=== PATIENT | female | born 1930 | race Caucasian/White ===

== ENCOUNTER → 2016-07-17 | Outpatient (CLI) | payer MEDICARE ==
[~2016-07-17] MED LIST: ACET325T14 PO; AMIO200T42 PO; AMLO10TA2 PO; ATOR20TA9 PO; BISA10SU54 PR; DIGO250T PO; FURO-93 PO; HYDR-3307 PO; LISI5TAB7 PO; MAGN400O4 PO; METO25TA35 PO; SENN-1 PO; SERT25TA3 PO; VIT1TABL32 PO; WARF2.5T73 PO; [UNRECOGNIZED DRUG - CODE] SQ; potassium chloride PO
== END | disposition home or self-care (01) ==
LOC: RAD 09:50
PROVIDERS: ATTEND Physician Assistant
DX: I63.9 Cerebral infarction, unspecified (principal); G31.9 Degenerative disease of nervous system, unspecified; R90.82 White matter disease, unspecified
CPT/HCPCS: 70551

== ENCOUNTER → 2016-08-09 | Outpatient (CLI) | payer MEDICARE | END | disposition home or self-care (01) | LOC: CFH 11:15 | PROVIDERS: ATTEND Physician Assistant | DX: S22.088A Other fracture of T11-T12 vertebra, initial encounter for closed fracture (principal); M85.88 Other specified disorders of bone density and structure, other site; M25.552 Pain in left hip; M47.896 Other spondylosis, lumbar region; I63.9 Cerebral infarction, unspecified; I48.91 Unspecified atrial fibrillation; I10 Essential (primary) hypertension; E78.5 Hyperlipidemia, unspecified; F32.9 Major depressive disorder, single episode, unspecified; R25.1 Tremor, unspecified; R35.0 Frequency of micturition; R79.9 Abnormal finding of blood chemistry, unspecified; E03.9 Hypothyroidism, unspecified; R73.01 Impaired fasting glucose; Z85.42 Personal history of malignant neoplasm of other parts of uterus; Z95.5 Presence of coronary angioplasty implant and graft; X58.XXXA Exposure to other specified factors, initial encounter; Y93.89 Activity, other specified; Y92.89 Other specified places as the place of occurrence of the external cause; Y99.8 Other external cause status | CPT/HCPCS: 72072; 72110 ==

== ENCOUNTER 2016-09-11 10:29 | Inpatient (IN) | payer MEDICARE ==
[~2016-09-11] VITALS: Ht 160 cm; Wt 51.1 kg
[2016-09-11] MEDS ORDERED: SERT25TA3 PO (10:45)
[2016-09-11] MEDS ORDERED: AMLO10TA2 PO (10:45)
[2016-09-11] MEDS ORDERED: LISI-170 PO (10:45)
[2016-09-11] MEDS ORDERED: ONDANSETRON 2MG/ML, 2ML IVPush ONE ×2 (11:30→13:30)
[2016-09-11] MEDS ORDERED: ONDANSETRON 2MG/ML, 2ML ONE (11:55)
[2016-09-11] MEDS ORDERED: SODIUM CHLORIDE 0.9% 1,000ML IVBOLUS ONE (12:00)
[2016-09-11] MEDS ORDERED: SODIUM CHLORIDE FLUSH 10ML SYR IVF ONE (12:00)
[2016-09-11 12:04] LABS: BLOOD UREA NITROGEN 11 mg/dL (7-18)
[2016-09-11 12:09] LABS: ASPARTATE AMINO TRANSFERASE 21 U/L (15-37)
[2016-09-11] MEDS ORDERED: OMNIPAQUE 350 MG/ML, 100ML BOTTLE ONE (13:00)
[2016-09-11] MEDS ORDERED: MORPHINE SULFATE 4 MG/ML, 1ML IVPush ONE (13:30)
[2016-09-11] MEDS ORDERED: METOCLOPRAMIDE 5 MG/ML, 2ML ONE (14:24)
[2016-09-11] MEDS ORDERED: MORPHINE SULFATE 4 MG/ML, 1ML ONE (14:24)
[2016-09-11] MEDS ORDERED: METOCLOPRAMIDE 5 MG/ML, 2ML IVPush ONE (14:30)
[2016-09-11] MEDS ORDERED: SODIUM CHLORIDE 0.9% 1,000 ML IV SCH (15:49)
[2016-09-11] MEDS ORDERED: ONDANSETRON ODT 4 MG PO PRN (16:00)
[2016-09-11] MEDS ORDERED: GUAIFENESIN/DM 200-20MG, 10ML UDC PO PRN (16:00)
[2016-09-11] MEDS ORDERED: MORPHINE SULFATE 4 MG/ML, 1ML IVPush PRN (16:00)
[2016-09-11] MEDS: ENOXAPARIN 40 MG/0.4 ML SQ SCH ×2 (16:00→18:06)
[2016-09-11] MEDS ORDERED: LABETALOL 5MG/ML, 20ML IVPush PRN (16:00)
[2016-09-11 17:00] VITALS: BP 151/93
[2016-09-11] MEDS ORDERED: AMIODARONE IV SCH (18:00)
[2016-09-11] MEDS ORDERED: FILTER 0.22 MICRON FOR AMIODARONE IV PRN (18:00)
[2016-09-11] MEDS ORDERED: DEXTROSE 5% IV SCH (18:00)
[2016-09-11 20:00] VITALS: BP 144/70
[2016-09-11] MEDS: AMIODARONE 200 MG TABLET PO SCH (20:10)
[2016-09-11] MEDS: LISINOPRIL 20 MG TABLET PO SCH (20:10)
[2016-09-11] MEDS: D5%-0.9% NACL 1,000 ML IV SCH (20:14)
[2016-09-12 00:02] VITALS: BP 118/70
[2016-09-12 04:00] VITALS: BP 137/70
[2016-09-12] MEDS: D5%-0.9% NACL 1,000 ML IV SCH ×2 (04:27→14:34)
[2016-09-12 06:16] LABS: ASPARTATE AMINO TRANSFERASE 11 U/L (15-37); BLOOD UREA NITROGEN 9 mg/dL (7-18)
[2016-09-12] MEDS ORDERED: MAGNESIUM SULFATE PMX 2GM/50ML 50 ML IV ONE (08:00)
[2016-09-12 08:16] VITALS: BP 148/74
[2016-09-12] MEDS: AMIODARONE 200 MG TABLET PO SCH ×3 (08:19→11:18)
[2016-09-12] MEDS: LISINOPRIL 20 MG TABLET PO SCH ×2 (08:20→21:24)
[2016-09-12] MEDS: SERTRALINE 50MG TABLET PO SCH (08:20)
[2016-09-12] MEDS ORDERED: ATORVASTATIN 40 MG TABLET PO SCH (09:00)
[2016-09-12] MEDS ORDERED: MULTIVITAMINS/MINERALS TABLET PO SCH (09:00)
[2016-09-12] MEDS ORDERED: AMLODIPINE 5 MG TABLET PO SCH (09:00)
[2016-09-12] MEDS ORDERED: ONDANSETRON 2MG/ML, 2ML IVPush PRN (11:00)
[2016-09-12] MEDS: ENOXAPARIN 40 MG/0.4 ML SQ SCH (11:12)
[2016-09-12] MEDS: METOCLOPRAMIDE 5 MG/ML, 2ML IVPush SCH ×2 (11:12→21:24)
[2016-09-12 11:20] VITALS: BP 129/78
[2016-09-12 14:10] VITALS: BP 142/68
[2016-09-12 18:54] VITALS: BP 139/67
[2016-09-13 02:08] VITALS: BP 125/68
[2016-09-13] MEDS: METOCLOPRAMIDE 5 MG/ML, 2ML IVPush SCH ×3 (02:23→16:27)
[2016-09-13] MEDS: D5%-0.9% NACL 1,000 ML IV SCH ×2 (04:00→17:00)
[2016-09-13 05:20] LABS: BLOOD UREA NITROGEN 5 mg/dL (7-18)
[2016-09-13 07:00] VITALS: BP 129/62
[2016-09-13] MEDS ORDERED: POTASSIUM CHLORIDE 40 MEQ in SODIUM CHLORIDE 0.9% 500 ML IV ONE (07:30)
[2016-09-13] MEDS ORDERED: AMLODIPINE 5 MG TABLET PO SCH (09:00)
[2016-09-13] MEDS ORDERED: AMIODARONE 200 MG TABLET PO SCH (09:00)
[2016-09-13] MEDS: LISINOPRIL 20 MG TABLET PO SCH (09:05)
[2016-09-13] MEDS: SERTRALINE 50MG TABLET PO SCH (09:05)
[2016-09-13] MEDS: ENOXAPARIN 40 MG/0.4 ML SQ SCH (12:59)
[2016-09-13 13:30] VITALS: BP 106/55
[2016-09-13] MEDS ORDERED: BISA10SU54 PR (15:46)
[2016-09-13] MEDS ORDERED: BISACODYL 10 MG SUPP PR SCH (16:00)
[2016-09-13] MEDS ORDERED: POTASSIUM CHLORIDE 20 MEQ TAB.ER.PRT PO ONE (16:00)
[2016-09-13] MEDS ORDERED: POTASSIUM ACID PHOSPHATE 500 MG TABLET.SOL PO SCH (16:00)
== END 2016-09-13 17:52 | disposition home or self-care (01) | DRG 388 ==
LOC: ED 11:27 → EDIP 14:32 → 3NE 16:13
PROVIDERS: ADMIT Internal Medicine; ATTEND Internal Medicine
DX: K56.60 Unspecified intestinal obstruction (principal); E43 Unspecified severe protein-calorie malnutrition; M48.54XA Collapsed vertebra, not elsewhere classified, thoracic region, initial encounter for fracture; D68.69 Other thrombophilia; D63.8 Anemia in other chronic diseases classified elsewhere; E78.5 Hyperlipidemia, unspecified; E83.39 Other disorders of phosphorus metabolism; E83.42 Hypomagnesemia; E87.6 Hypokalemia; H35.30 Unspecified macular degeneration; I10 Essential (primary) hypertension; I48.2 Chronic atrial fibrillation; R16.0 Hepatomegaly, not elsewhere classified; I25.10 Atherosclerotic heart disease of native coronary artery without angina pectoris; I34.0 Nonrheumatic mitral (valve) insufficiency; Z79.01 Long term (current) use of anticoagulants; Z86.73 Personal history of transient ischemic attack (TIA), and cerebral infarction without residual deficits; Z95.5 Presence of coronary angioplasty implant and graft; Z90.710 Acquired absence of both cervix and uterus; Z88.6 Allergy status to analgesic agent; Z68.20 Body mass index [BMI] 20.0-20.9, adult
CPT/HCPCS: 36415; 74022; 74177; 80048; 80053; 81003; 83690; 83735; 84100; 84439; 84443; 85025; 85610; 85730; 93005; 96361; 96374; 96375; J1650; J2405; J3480; J7042; Q9967; J2765; J3475; J7030; J7040

== ENCOUNTER 2017-05-28 07:20 | Day surgery (SDC) | payer MEDICARE ==
[~2017-05-28] VITALS: Ht 160 cm; Wt 50.9 kg
[~2017-05-28 07:20] MED LIST changes: +LISI-170 PO; -MAGN400O4 PO; +MAGN400O7 PO
[2017-05-28 07:35] VITALS: BP 136/81
[2017-05-28] MEDS ORDERED: PROP20TA PO (07:48)
[2017-05-28] MEDS ORDERED: AMIO200T42 PO (07:48)
[2017-05-28] MEDS ORDERED: RIVA15TA PO (07:51)
[2017-05-28] MEDS ORDERED: AMIO100T4 PO (09:12)
[2017-05-28] MEDS ORDERED: HYDROcodone/APAP 5/325 TABLET PO ONE (12:00)
[2017-05-28] MEDS ORDERED: GLYCOPYRROLATE 0.2MG/1ML, 5ML ONE (16:28)
[2017-05-28] MEDS ORDERED: PROPOFOL 10 MG/ML, 20ML ONE (16:28)
== END 2017-05-28 11:45 ==
LOC: CACL 07:20
PROVIDERS: ATTEND Internal Medicine Cardiovascular Disease
DX: I48.91 Unspecified atrial fibrillation (principal); I10 Essential (primary) hypertension; E78.00 Pure hypercholesterolemia, unspecified; E87.6 Hypokalemia; F10.10 Alcohol abuse, uncomplicated; Z87.891 Personal history of nicotine dependence; Z88.3 Allergy status to other anti-infective agents
CPT/HCPCS: 92960; J2704; J3490

== ENCOUNTER 2017-07-26 13:59 | Emergency (ER) | payer MEDICARE ==
[~2017-07-26] VITALS: Ht 160 cm; Wt 50.7 kg
[~2017-07-26 13:59] MED LIST changes: +AMIO100T4 PO; +DOCU-131 PO; +PHOS250T3 PO; +PROP20TA PO; +RIVA15TA PO; +SULF1TAB24 PO
[2017-07-26 14:00] VITALS: BP 142/74
[2017-07-26] MEDS ORDERED: DIPH,PERTUSS(ACELL),TET VAC/PF 0.5 ML IM-VACC ONE ×2 (14:30→15:26)
== END 2017-07-26 16:47 | disposition home or self-care (01) ==
LOC: ED 16:35
DX: S00.03XA Contusion of scalp, initial encounter (principal); I25.10 Atherosclerotic heart disease of native coronary artery without angina pectoris; I10 Essential (primary) hypertension; I48.91 Unspecified atrial fibrillation; Z86.73 Personal history of transient ischemic attack (TIA), and cerebral infarction without residual deficits; Z87.891 Personal history of nicotine dependence; W01.0XXA Fall on same level from slipping, tripping and stumbling without subsequent striking against object, initial encounter; Y93.89 Activity, other specified; Y92.009 Unspecified place in unspecified non-institutional (private) residence as the place of occurrence of the external cause; Y99.8 Other external cause status
CPT/HCPCS: 70450; 99284

== ENCOUNTER 2017-09-09 10:41 | Inpatient (IN) | payer MEDICARE ==
[~2017-09-09] VITALS: Ht 160 cm; Wt 53.2 kg
[2017-09-09] MEDS ORDERED: AMIO100T4 PO (11:01)
[2017-09-09] MEDS ORDERED: MECLIZINE CHEWABLE 25 MG TAB ONE (11:40)
[2017-09-09] MEDS ORDERED: SODIUM CHLORIDE 0.9% 1,000ML IVBOLUS ONE (12:00)
[2017-09-09] MEDS ORDERED: SODIUM CHLORIDE FLUSH 10ML SYR IVF ONE (12:00)
[2017-09-09] MEDS ORDERED: MECLIZINE CHEWABLE 25 MG TAB PO ONE (12:00)
[2017-09-09 12:11] LABS: BASOPHILS # (AUTO) 0.02 x10^3/uL (0-0.1); BASOPHILS % (AUTO) 0 % (0-1); EOSINOPHILS # (AUTO) 0.07 x10^3/uL (0-0.4); EOSINOPHILS % (AUTO) 1 % (1-7); LYMPHOCYTES # (AUTO) 0.84 x10^3/uL (1-3.4); LYMPHOCYTES % (AUTO) 15 % (22-44); MD NO; MEAN CORPUSCULAR HEMOGLOBIN 32.3 pg (27.0-34.8); MEAN CORPUSCULAR HGB CONC 33.5 g/dL (32.4-35.8); MEAN CORPUSCULAR VOLUME 96.4 fL (80-100); MEAN PLATELET VOLUME 8.6 fL (7.4-10.4); MONOCYTES # (AUTO) 0.73 x10^3/uL (0.2-0.8); MONOCYTES % (AUTO) 13 % (2-9); NEUTROPHILS % (AUTO) 71 % (42-75); PLATELET COUNT 120 x10^3/uL (130-400); RED BLOOD COUNT 4.24 x10^6/uL (3.82-5.3); RED CELL DISTRIBUTION WIDTH 13.8 % (9.6-15.2)
[2017-09-09 12:21] LABS: ALBUMIN 3.4 g/dL (3.4-5.0); ANION GAP 8 mmol/L (5-15); CALCIUM 9.3 mg/dL (8.5-10.1); CHLORIDE 105 mmol/L (98-107); CREATININE 0.67 mg/dL (0.55-1.02)
[2017-09-09 12:24] LABS: CULTURE INDICATED? NO; MICROSCOPIC NOT IND
[2017-09-09 12:24] LABS: TROPONIN I < 0.015 ng/mL (0.000-0.045)
[2017-09-09] MEDS ORDERED: POTASSIUM CHLORIDE 10% 40 MEQ/30 ML UDC PO ONE (13:00)
[2017-09-09] MEDS: POTASSIUM CHLORIDE 20 MEQ TAB.ER.PRT PO SCH ×2 (15:00→18:18)
[2017-09-09 15:09] LABS: FREE T4 (FREE THYROXINE) 1.24 ng/dL (0.76-1.46); THYROID STIMULATING HORMONE 2.65 mIU/L (0.358-3.740)
[2017-09-09 15:50] VITALS: BP 165/85
[2017-09-09] MEDS: SODIUM CHLORIDE 0.9% 1,000 ML IV SCH ×2 (16:47→18:17)
[2017-09-09] MEDS ORDERED: CEFAZOLIN PMX 1GM/50ML 50 ML IVPB ONE (17:00)
[2017-09-09 18:09] LABS: TROPONIN I < 0.015 ng/mL (0.000-0.045)
[2017-09-09 20:00] VITALS: BP 134/83
[2017-09-09 20:01] VITALS: BP 147/89
[2017-09-09 20:02] VITALS: BP 127/75
[2017-09-09] MEDS ORDERED: RIVAROXABAN 15 MG TABLET PO SCH (21:00)
[2017-09-09] MEDS ORDERED: MAGNESIUM SULFATE PMX 4GM/100M 100 ML IV ONE (21:30)
[2017-09-09] MEDS: LISINOPRIL 20 MG TABLET PO SCH (21:51)
[2017-09-09] MEDS: ATORVASTATIN 40 MG TABLET PO SCH (21:51)
[2017-09-10] MEDS: SODIUM CHLORIDE 0.9% 1,000 ML IV SCH ×4 (00:47→14:41)
[2017-09-10 00:49] LABS: TROPONIN I < 0.015 ng/mL (0.000-0.045)
[2017-09-10 02:00] VITALS: BP 125/62
[2017-09-10 05:10] LABS: BASOPHILS # (AUTO) 0.02 x10^3/uL (0-0.1); BASOPHILS % (AUTO) 0 % (0-1); EOSINOPHILS # (AUTO) 0.09 x10^3/uL (0-0.4); EOSINOPHILS % (AUTO) 2 % (1-7); LYMPHOCYTES # (AUTO) 0.89 x10^3/uL (1-3.4); LYMPHOCYTES % (AUTO) 17 % (22-44); MD NO; MEAN CORPUSCULAR HEMOGLOBIN 32.6 pg (27.0-34.8); MEAN CORPUSCULAR HGB CONC 33.9 g/dL (32.4-35.8); MEAN CORPUSCULAR VOLUME 96.2 fL (80-100); MEAN PLATELET VOLUME 8.9 fL (7.4-10.4); MONOCYTES # (AUTO) 0.94 x10^3/uL (0.2-0.8); MONOCYTES % (AUTO) 18 % (2-9); NEUTROPHILS # (AUTO) 3.21 x10^3/uL (1.8-6.8); NEUTROPHILS % (AUTO) 63 % (42-75); PLATELET COUNT 118 x10^3/uL (130-400); RED BLOOD COUNT 3.74 x10^6/uL (3.82-5.3); RED CELL DISTRIBUTION WIDTH 14.1 % (9.6-15.2)
[2017-09-10 05:19] LABS: ALANINE AMINOTRANSFERASE 21 U/L (12-78); ALBUMIN 2.9 g/dL (3.4-5.0); ANION GAP 7 mmol/L (5-15); CHLORIDE 110 mmol/L (98-107)
[2017-09-10 05:22] LABS: ALKALINE PHOSPHATASE 47 U/L (45-117); BILIRUBIN,TOTAL 0.5 mg/dL (0.2-1.0); CHOL/HDL RATIO 1.8; CHOLESTEROL, TOTAL 113 mg/dL (140-239); HDL CHOL % 57 % (28-40); HDL CHOLESTEROL (DIRECT) 64 mg/dL (40-60); LDL CHOLESTEROL,CALCULATED 36 mg/dL (54-169); LDL/HDL RATIO 0.6 (0.5-3.0); TOTAL PROTEIN 5.7 g/dL (6.4-8.2); TRIGLYCERIDES 67 mg/dL (50-200); VLDL CHOLESTEROL 13 mg/dL (0-25)
[2017-09-10] MEDS ORDERED: FENTANYL PF 100 MCG/2ML ONE (07:41)
[2017-09-10] MEDS ORDERED: CEFAZOLIN 1,000 MG ONE (07:41)
[2017-09-10] MEDS ORDERED: MIDAZOLAM 1 MG/ML, 5ML ONE (07:41)
[2017-09-10] MEDS ORDERED: LIDOCAINE/PF 1%, 30ML ONE (07:41)
[2017-09-10] MEDS ORDERED: CEFAZOLIN PMX 1GM/50ML 50 ML ONE (07:41)
[2017-09-10] MEDS: SPIRONOLACTONE 25 MG TABLET PO SCH (07:42)
[2017-09-10] MEDS: AMLODIPINE 5 MG TABLET PO SCH (07:42)
[2017-09-10] MEDS: LISINOPRIL 20 MG TABLET PO SCH ×3 (07:42→19:59)
[2017-09-10 07:54] VITALS: BP 145/73
[2017-09-10] MEDS ORDERED: ATORVASTATIN 40 MG TABLET PO SCH (09:00)
[2017-09-10] MEDS ORDERED: SERTRALINE 100MG TABLET ONE (12:37)
[2017-09-10] MEDS: SERTRALINE 50MG TABLET PO SCH (12:45)
[2017-09-10] MEDS: POTASSIUM CHLORIDE 20 MEQ TAB.ER.PRT PO SCH ×2 (12:45→16:39)
[2017-09-10 13:28] VITALS: BP 158/83
[2017-09-10] MEDS: AMIODARONE 200 MG TABLET PO SCH (15:02)
[2017-09-10] MEDS: PROPRANOLOL 60 MG CAP.SA.24H PO SCH (15:02)
[2017-09-10] MEDS: CEFAZOLIN PMX 1GM/50ML 50 ML IVPB SCH (16:25)
[2017-09-10] MEDS: SODIUM CHLORIDE FLUSH 10ML SYR IVF SCH ×2 (16:25→20:00)
[2017-09-10] MEDS: ACETAMINOPHEN 325 MG TABLET PO PRN (16:39)
[2017-09-10 19:06] VITALS: BP 146/80
[2017-09-10] MEDS: ATORVASTATIN 40 MG TABLET PO SCH (19:59)
[2017-09-11] MEDS: CEFAZOLIN PMX 1GM/50ML 50 ML IVPB SCH (00:24)
[2017-09-11] MEDS: SODIUM CHLORIDE 0.9% 1,000 ML IV SCH ×3 (00:31→15:56)
[2017-09-11 00:49] VITALS: BP 188/84
[2017-09-11 01:54] VITALS: BP 178/98
[2017-09-11] MEDS: ACETAMINOPHEN 325 MG TABLET PO PRN ×2 (05:57→21:33)
[2017-09-11 06:45] VITALS: BP 156/88
[2017-09-11] MEDS: PROPRANOLOL 60 MG CAP.SA.24H PO SCH (08:30)
[2017-09-11] MEDS: SERTRALINE 50MG TABLET PO SCH (08:30)
[2017-09-11] MEDS: LISINOPRIL 20 MG TABLET PO SCH ×2 (08:31→21:34)
[2017-09-11] MEDS: SPIRONOLACTONE 25 MG TABLET PO SCH (08:31)
[2017-09-11] MEDS: AMIODARONE 200 MG TABLET PO SCH (08:31)
[2017-09-11] MEDS: AMLODIPINE 5 MG TABLET PO SCH ×2 (08:31→21:34)
[2017-09-11] MEDS ORDERED: AMIODARONE HCL 100 MG PO SCH (09:00)
[2017-09-11] MEDS ORDERED: ONDANSETRON ODT 4 MG PO PRN (10:30)
[2017-09-11] MEDS ORDERED: ONDANSETRON 2MG/ML, 2ML IVPush PRN (11:00)
[2017-09-11 15:35] VITALS: BP_SYST 103; BP_SYST 144; BP_SYST 151; BP_DIAS 67; BP_DIAS 80; BP_DIAS 81
[2017-09-11] MEDS ORDERED: MECLIZINE 12.5 MG TABLET PO PRN (16:00)
[2017-09-11] MEDS ORDERED: RIVAROXABAN 15 MG TABLET PO SCH (17:00)
[2017-09-11] MEDS: SODIUM CHLORIDE FLUSH 10ML SYR IVF SCH ×2 (18:07→21:35)
[2017-09-11 19:22] VITALS: BP 121/69
[2017-09-11] MEDS: ATORVASTATIN 40 MG TABLET PO SCH (21:34)
[2017-09-12 00:25] VITALS: BP 163/79
[2017-09-12 05:16] LABS: MEAN CORPUSCULAR HEMOGLOBIN 31.7 pg (27.0-34.8); MEAN CORPUSCULAR HGB CONC 32.9 g/dL (32.4-35.8); MEAN CORPUSCULAR VOLUME 96.2 fL (80-100); RED BLOOD COUNT 3.85 x10^6/uL (3.82-5.3); RED CELL DISTRIBUTION WIDTH 13.9 % (9.6-15.2)
[2017-09-12 05:17] LABS: ANION GAP 4 mmol/L (5-15); CALCIUM 8.8 mg/dL (8.5-10.1); CHLORIDE 114 mmol/L (98-107); CREATININE 0.63 mg/dL (0.55-1.02)
[2017-09-12] MEDS: SODIUM CHLORIDE 0.9% 1,000 ML IV SCH (05:49)
[2017-09-12 06:03] LABS: MEAN PLATELET VOLUME 8.8 fL (7.4-10.4); PLATELET COUNT 84 x10^3/uL (130-400)
[2017-09-12 06:06] LABS: BASOPHILS # (AUTO) 0.01 x10^3/uL (0-0.1); BASOPHILS % (AUTO) 0 % (0-1); EOSINOPHILS # (AUTO) 0.11 x10^3/uL (0-0.4); EOSINOPHILS % (AUTO) 1 % (1-7); LYMPHOCYTES # (AUTO) 0.79 x10^3/uL (1-3.4); LYMPHOCYTES % (AUTO) 9 % (22-44); MD SCAN; MONOCYTES # (AUTO) 1.26 x10^3/uL (0.2-0.8); MONOCYTES % (AUTO) 15 % (2-9); NEUTROPHILS # (AUTO) 6.52 x10^3/uL (1.8-6.8); NEUTROPHILS % (AUTO) 75 % (42-75)
[2017-09-12 07:05] VITALS: BP 156/89
[2017-09-12 07:10] VITALS: BP 142/90
[2017-09-12 07:15] VITALS: BP 150/75
[2017-09-12] MEDS ORDERED: SERTRALINE 100MG TABLET ONE (08:04)
[2017-09-12] MEDS: SODIUM CHLORIDE FLUSH 10ML SYR IVF SCH (09:00)
[2017-09-12] MEDS: AMIODARONE 200 MG TABLET PO SCH (09:51)
[2017-09-12] MEDS: PROPRANOLOL 60 MG CAP.SA.24H PO SCH (09:51)
[2017-09-12] MEDS: SPIRONOLACTONE 25 MG TABLET PO SCH (09:51)
[2017-09-12] MEDS: SERTRALINE 50MG TABLET PO SCH (09:52)
[2017-09-12] MEDS: LISINOPRIL 20 MG TABLET PO SCH (09:52)
[2017-09-12] MEDS: AMLODIPINE 5 MG TABLET PO SCH (09:52)
[2017-09-12 10:21] VITALS: BP_SYST 140; BP_SYST 145; BP_SYST 146; BP_DIAS 74; BP_DIAS 88; BP_DIAS 94
[2017-09-12] MEDS ORDERED: PROP60CA PO (12:08)
[2017-09-12] MEDS ORDERED: AMIO200T42 PO (12:08)
[2017-09-12] MEDS ORDERED: MECL12.52 PO (12:08)
[2017-09-12] MEDS ORDERED: SPIR25TA PO (12:08)
== END 2017-09-12 13:50 | disposition home health service (06) | DRG 242 ==
LOC: ED 13:38 → EDIP 13:46 → 4WST 15:36 → 5SO 09-10 08:43 → DCLOUNGE 09-12 13:23
PROVIDERS: ADMIT Hospitalist; ATTEND Hospitalist
PROC: 0JH606Z Insertion of Pacemaker, Dual Chamber into Chest Subcutaneous Tissue and Fascia, Open Approach (ICD-10-PCS; principal; 2017-09-10)
PROC: 02H63JZ Insertion of Pacemaker Lead into Right Atrium, Percutaneous Approach (ICD-10-PCS; 2017-09-10)
PROC: 02HK3JZ Insertion of Pacemaker Lead into Right Ventricle, Percutaneous Approach (ICD-10-PCS; 2017-09-10)
DX: I49.5 Sick sinus syndrome (principal); I50.33 Acute on chronic diastolic (congestive) heart failure; D68.69 Other thrombophilia; E44.1 Mild protein-calorie malnutrition; D69.6 Thrombocytopenia, unspecified; G90.8 Other disorders of autonomic nervous system; I48.0 Paroxysmal atrial fibrillation; E03.9 Hypothyroidism, unspecified; E78.5 Hyperlipidemia, unspecified; W18.39XA Other fall on same level, initial encounter; I34.0 Nonrheumatic mitral (valve) insufficiency; I49.8 Other specified cardiac arrhythmias; Z68.20 Body mass index [BMI] 20.0-20.9, adult; E87.6 Hypokalemia; H35.30 Unspecified macular degeneration; I25.10 Atherosclerotic heart disease of native coronary artery without angina pectoris; R25.1 Tremor, unspecified; I73.9 Peripheral vascular disease, unspecified; H35.3290 Exudative age-related macular degeneration, unspecified eye, stage unspecified; Z79.01 Long term (current) use of anticoagulants; Z80.9 Family history of malignant neoplasm, unspecified; Z85.42 Personal history of malignant neoplasm of other parts of uterus; Z86.73 Personal history of transient ischemic attack (TIA), and cerebral infarction without residual deficits; Z87.891 Personal history of nicotine dependence; Z90.710 Acquired absence of both cervix and uterus; Z92.3 Personal history of irradiation; Z95.5 Presence of coronary angioplasty implant and graft; Y93.89 Activity, other specified; Y92.89 Other specified places as the place of occurrence of the external cause; Y99.8 Other external cause status; Z88.6 Allergy status to analgesic agent; I11.0 Hypertensive heart disease with heart failure
CPT/HCPCS: 33208; 36415; 71045; 80048; 80053; 80061; 81003; 82040; 83735; 84100; 84439; 84443; 84484; 85025; 93005; 93306; 93880; 99156; 99285; C1779; C1785; C1892; J0690; J2250; J3010; J3490; J3475; J7030

== ENCOUNTER → 2017-09-27 | Outpatient (CLI) | payer MEDICARE ==
[~2017-09-27] MED LIST changes: +MECL12.52 PO; +PROP60CA PO; +REGADENOSON 0.4 MG/5 ML SYRINGE ONE; +SPIR25TA PO
== END | disposition home or self-care (01) ==
LOC: RAD 11:05
PROVIDERS: ATTEND Nurse Practitioner Family
DX: I25.10 Atherosclerotic heart disease of native coronary artery without angina pectoris (principal); R42 Dizziness and giddiness
CPT/HCPCS: 78452; 93017; A9502; J2785

== ENCOUNTER 2017-10-27 06:34 | Inpatient (IN) | payer MEDICARE ==
[~2017-10-27] VITALS: Ht 160 cm; Wt 52.0 kg
[~2017-10-27 06:34] MED LIST changes: -REGADENOSON 0.4 MG/5 ML SYRINGE ONE
[2017-10-27 07:21] LABS: ALANINE AMINOTRANSFERASE 26 U/L (12-78); ALBUMIN 3.5 g/dL (3.4-5.0); ANION GAP 10 mmol/L (5-15); CALCIUM 8.7 mg/dL (8.5-10.1); CHLORIDE 107 mmol/L (98-107); CREATININE 0.95 mg/dL (0.55-1.02)
[2017-10-27 07:26] LABS: ALKALINE PHOSPHATASE 64 U/L (45-117); BILIRUBIN,TOTAL 1.1 mg/dL (0.2-1.0); TOTAL PROTEIN 7.1 g/dL (6.4-8.2)
[2017-10-27 07:30] LABS: BASOPHILS # (AUTO) 0.04 x10^3/uL (0-0.1); BASOPHILS % (AUTO) 0 % (0-1); EOSINOPHILS # (AUTO) 0.05 x10^3/uL (0-0.4); EOSINOPHILS % (AUTO) 0 % (1-7); LYMPHOCYTES # (AUTO) 0.58 x10^3/uL (1-3.4); LYMPHOCYTES % (AUTO) 3 % (22-44); MD NO; MEAN CORPUSCULAR HEMOGLOBIN 31.5 pg (27.0-34.8); MEAN CORPUSCULAR HGB CONC 33.1 g/dL (32.4-35.8); MEAN PLATELET VOLUME 9.6 fL (7.4-10.4); MONOCYTES # (AUTO) 1.08 x10^3/uL (0.2-0.8); MONOCYTES % (AUTO) 6 % (2-9); NEUTROPHILS # (AUTO) 16.02 x10^3/uL (1.8-6.8); NEUTROPHILS % (AUTO) 90 % (42-75); PLATELET COUNT 103 x10^3/uL (130-400); RED BLOOD COUNT 4.64 x10^6/uL (3.82-5.3)
[2017-10-27] MEDS ORDERED: POTASSIUM CHLORIDE 40 MEQ in SODIUM CHLORIDE 0.9% 500 ML IV ONE (08:00)
[2017-10-27 08:22] LABS: INTERNATIONAL NORMALIZED RATIO 1.51 (0.93-1.1); PROTHROMBIN TIME 15.6 Seconds (9.6-11.5)
[2017-10-27] MEDS ORDERED: OMNIPAQUE 350 MG/ML, 100ML BOTTLE ONE (08:53)
[2017-10-27] MEDS ORDERED: ONDANSETRON 2MG/ML, 2ML IVPush PRN (10:30)
[2017-10-27] MEDS ORDERED: morphine SULFATE 10 MG/ML, 1ML IVPush PRN (10:30)
[2017-10-27] MEDS: D5%-0.45NACL+KCL 40MEQ 1,000 ML IV SCH ×2 (11:54→22:05)
[2017-10-27] MEDS ORDERED: MAGNESIUM SULFATE 1 GM in SODIUM CHLORIDE 0.9% 50 ML IV ONE (12:00)
[2017-10-27] MEDS ORDERED: FILTER 0.22 MICRON FOR AMIODARONE IV PRN (12:00)
[2017-10-27 13:26] VITALS: BP 122/68
[2017-10-27] MEDS: AMIODARONE 150 MG in DEXTROSE 5% 100 ML IV SCH (14:47)
[2017-10-27] MEDS: ENALAPRILAT 1.25 MG/ML, 2ML IV SCH ×3 (15:03→22:21)
[2017-10-27] MEDS: METOPROLOL 1 MG/ML, 5ML IVPush SCH ×2 (17:04→21:17)
[2017-10-27 19:01] VITALS: BP 127/84
[2017-10-27 21:15] VITALS: BP 138/83
[2017-10-27] MEDS: FAMOTIDINE 20 MG/2 ML IVPush SCH (21:16)
[2017-10-27] MEDS: ENOXAPARIN 40 MG/0.4 ML SQ SCH (21:17)
[2017-10-27 22:20] VITALS: BP 119/76
[2017-10-28] VITALS (9 sets, daily range): BP systolic 117–142; BP diastolic 66–89
[2017-10-28] MEDS: ENALAPRILAT 1.25 MG/ML, 2ML IV SCH ×4 (04:59→22:10)
[2017-10-28 05:44] LABS: ANION GAP 6 mmol/L (5-15); CALCIUM 7.6 mg/dL (8.5-10.1); CHLORIDE 115 mmol/L (98-107)
[2017-10-28 05:47] LABS: CREATININE 0.72 mg/dL (0.55-1.02)
[2017-10-28] MEDS: D5%-0.45NACL+KCL 40MEQ 1,000 ML IV SCH ×4 (06:19→23:50)
[2017-10-28 06:37] LABS: BASOPHILS # (AUTO) 0.01 x10^3/uL (0-0.1); BASOPHILS % (AUTO) 0 % (0-1); EOSINOPHILS # (AUTO) 0.12 x10^3/uL (0-0.4); EOSINOPHILS % (AUTO) 2 % (1-7); LYMPHOCYTES # (AUTO) 0.75 x10^3/uL (1-3.4); LYMPHOCYTES % (AUTO) 10 % (22-44); MD SCAN; MEAN CORPUSCULAR HEMOGLOBIN 31.7 pg (27.0-34.8); MEAN CORPUSCULAR VOLUME 95.9 fL (80-100); MEAN PLATELET VOLUME 9.9 fL (7.4-10.4); MONOCYTES # (AUTO) 0.86 x10^3/uL (0.2-0.8); MONOCYTES % (AUTO) 11 % (2-9); NEUTROPHILS % (AUTO) 77 % (42-75); PLATELET COUNT 95 x10^3/uL (130-400); RED BLOOD COUNT 3.79 x10^6/uL (3.82-5.3); RED CELL DISTRIBUTION WIDTH 14.1 % (9.6-15.2)
[2017-10-28] MEDS ORDERED: AMIODARONE 50 MG/ML, 3ML IVPush SCH (09:00)
[2017-10-28] MEDS: METOPROLOL 1 MG/ML, 5ML IVPush SCH ×3 (09:17→21:16)
[2017-10-28] MEDS: FAMOTIDINE 20 MG/2 ML IVPush SCH (09:17)
[2017-10-28] MEDS: ENOXAPARIN 40 MG/0.4 ML SQ SCH ×2 (09:17→21:17)
[2017-10-28] MEDS ORDERED: MAGNESIUM SULFATE IV ONE ×2 (10:30)
[2017-10-28] MEDS ORDERED: STERILE WATER IV ONE ×2 (10:30)
[2017-10-28] MEDS: AMIODARONE 150 MG in DEXTROSE 5% 100 ML IV SCH (14:03)
[2017-10-28 18:29] LABS: CULTURE INDICATED? YES; MICROSCOPIC INDICATED
[2017-10-28] MEDS ORDERED: CIPROFLOXACIN 500 MG TABLET PO ONE (22:00)
[2017-10-29 01:26] VITALS: BP 124/80
[2017-10-29 04:14] VITALS: BP 128/80
[2017-10-29] MEDS: ENALAPRILAT 1.25 MG/ML, 2ML IV SCH (04:15)
[2017-10-29 05:08] LABS: ANION GAP 6 mmol/L (5-15); CALCIUM 7.5 mg/dL (8.5-10.1); CHLORIDE 109 mmol/L (98-107)
[2017-10-29 05:09] LABS: CREATININE 0.59 mg/dL (0.55-1.02)
[2017-10-29 07:46] VITALS: BP 141/92
[2017-10-29] MEDS ORDERED: SODIUM CHLORIDE 0.9% 1,000 ML IV SCH (08:19)
[2017-10-29] MEDS ORDERED: MECLIZINE 12.5 MG TABLET PO PRN (08:30)
[2017-10-29] MEDS ORDERED: CEFAZOLIN PMX 1GM/50ML 50 ML IVPB ONE (08:30)
[2017-10-29] MEDS: AMIODARONE 200 MG TABLET PO SCH (09:29)
[2017-10-29] MEDS: LORATADINE 10 MG TABLET PO SCH (09:29)
[2017-10-29] MEDS: SPIRONOLACTONE 25 MG TABLET PO SCH (09:29)
[2017-10-29] MEDS: AMLODIPINE 5 MG TABLET PO SCH (09:29)
[2017-10-29] MEDS: SERTRALINE 50MG TABLET PO SCH (09:30)
[2017-10-29] MEDS: LISINOPRIL 20 MG TABLET PO SCH ×2 (09:30→21:06)
[2017-10-29] MEDS ORDERED: FAMOTIDINE 20 MG/2 ML IVPush SCH (09:30)
[2017-10-29] MEDS: SULFAMETH./TRIMETHOPRIM DS 800MG/160MG TABLET PO SCH ×2 (09:30→21:06)
[2017-10-29] MEDS: ENOXAPARIN 40 MG/0.4 ML SQ SCH ×2 (09:31→21:06)
[2017-10-29 12:42] VITALS: BP 135/82
[2017-10-29] MEDS ORDERED: LIDOCAINE/PF 1%, 30ML ONE (14:34)
[2017-10-29] MEDS ORDERED: MIDAZOLAM 1 MG/ML, 5ML ONE (14:34)
[2017-10-29] MEDS ORDERED: FENTANYL PF 100 MCG/2ML ONE (14:34)
[2017-10-29] MEDS ORDERED: CEFAZOLIN 1,000 MG ONE (14:35)
[2017-10-29] MEDS: D5%-0.45NACL+KCL 40MEQ 1,000 ML IV SCH (16:51)
[2017-10-29 19:12] VITALS: BP 109/68
[2017-10-29] MEDS ORDERED: ATORVASTATIN 40 MG TABLET PO SCH (21:00)
[2017-10-29] MEDS: SODIUM CHLORIDE FLUSH 10ML SYR IVF SCH (21:06)
[2017-10-29] MEDS: CEFAZOLIN PMX 1GM/50ML 50 ML IVPB SCH (23:04)
[2017-10-30 01:10] VITALS: BP 132/81
[2017-10-30] MEDS ORDERED: PROPRANOLOL 60 MG TABLET PO SCH (06:00)
[2017-10-30 07:18] VITALS: BP 142/84
[2017-10-30] MEDS: CEFAZOLIN PMX 1GM/50ML 50 ML IVPB SCH (08:42)
[2017-10-30] MEDS: SERTRALINE 50MG TABLET PO SCH (08:42)
[2017-10-30] MEDS: SPIRONOLACTONE 25 MG TABLET PO SCH (08:42)
[2017-10-30] MEDS ORDERED: ACET325T14 PO (08:42)
[2017-10-30] MEDS: AMIODARONE 200 MG TABLET PO SCH (08:43)
[2017-10-30] MEDS: LORATADINE 10 MG TABLET PO SCH (08:43)
[2017-10-30] MEDS: LISINOPRIL 20 MG TABLET PO SCH (08:43)
[2017-10-30] MEDS: ENOXAPARIN 40 MG/0.4 ML SQ SCH (08:43)
[2017-10-30] MEDS: AMLODIPINE 5 MG TABLET PO SCH (08:43)
[2017-10-30] MEDS: SULFAMETH./TRIMETHOPRIM DS 800MG/160MG TABLET PO SCH (08:43)
[2017-10-30] MEDS: SODIUM CHLORIDE FLUSH 10ML SYR IVF SCH (08:44)
[2017-10-30] MEDS ORDERED: SULF-169 PO (08:45)
== END 2017-10-30 11:04 | disposition home or self-care (01) | DRG 260 ==
LOC: ED 07:45 → EDIP 10:04 → 5SO 11:23 → DCLOUNGE 10-30 10:52
PROVIDERS: ADMIT Internal Medicine Cardiovascular Disease; ATTEND Surgery
PROC: 02PA3MZ Removal of Cardiac Lead from Heart, Percutaneous Approach (ICD-10-PCS; principal; 2017-10-29)
PROC: 02WA3MZ Revision of Cardiac Lead in Heart, Percutaneous Approach (ICD-10-PCS; 2017-10-29)
DX: T82.120A Displacement of cardiac electrode, initial encounter (principal); R65.11 Systemic inflammatory response syndrome (SIRS) of non-infectious origin with acute organ dysfunction; K56.600 Partial intestinal obstruction, unspecified as to cause; N39.0 Urinary tract infection, site not specified; T82.119A Breakdown (mechanical) of unspecified cardiac electronic device, initial encounter; D68.69 Other thrombophilia; E87.6 Hypokalemia; I10 Essential (primary) hypertension; E78.5 Hyperlipidemia, unspecified; Y92.89 Other specified places as the place of occurrence of the external cause; E03.9 Hypothyroidism, unspecified; E78.00 Pure hypercholesterolemia, unspecified; E83.42 Hypomagnesemia; H35.30 Unspecified macular degeneration; I25.10 Atherosclerotic heart disease of native coronary artery without angina pectoris; I34.0 Nonrheumatic mitral (valve) insufficiency; I73.9 Peripheral vascular disease, unspecified; I48.0 Paroxysmal atrial fibrillation; Y71.2 Prosthetic and other implants, materials and accessory cardiovascular devices associated with adverse incidents; Z66 Do not resuscitate; Z79.01 Long term (current) use of anticoagulants; Z85.42 Personal history of malignant neoplasm of other parts of uterus; Z86.73 Personal history of transient ischemic attack (TIA), and cerebral infarction without residual deficits; Z90.710 Acquired absence of both cervix and uterus; Z87.891 Personal history of nicotine dependence; Z95.5 Presence of coronary angioplasty implant and graft; Z88.6 Allergy status to analgesic agent
CPT/HCPCS: 33215; 33234; 36415; 71045; 74018; 74021; 74022; 74177; 74250; 80048; 80053; 81001; 83690; 83735; 83880; 84100; 85025; 85610; 85730; 87077; 87086; 87186; 93005; 99156; 99157; J0690; J1650; J2250; J3010; J3475; J3480; J3490; Q9967; J0282; J7040; S0028

== ENCOUNTER 2017-12-04 08:22 | Inpatient (IN) | payer MEDICARE ==
[~2017-12-04] VITALS: Ht 160 cm; Wt 46.7 kg
[~2017-12-04 08:22] MED LIST changes: -AMLO10TA2 PO; +AMLO10TA6 PO; -SENN-1 PO; +SENN-92 PO; +SULF-169 PO
[2017-12-04] MEDS ORDERED: SODIUM CHLORIDE 0.9% 1,000 ML IV ONE ×2 (08:41→12:25)
[2017-12-04] MEDS ORDERED: ONDANSETRON 2MG/ML, 2ML ONE (09:00)
[2017-12-04] MEDS ORDERED: SODIUM CHLORIDE FLUSH 10ML SYR IVF ONE (09:00)
[2017-12-04] MEDS ORDERED: ONDANSETRON 2MG/ML, 2ML IVPush ONE (09:00)
[2017-12-04 09:40] LABS: BASOPHILS # (AUTO) 0.06 x10^3/uL (0-0.1); BASOPHILS % (AUTO) 1 % (0-1); EOSINOPHILS # (AUTO) 0.13 x10^3/uL (0-0.4); EOSINOPHILS % (AUTO) 1 % (1-7); LYMPHOCYTES # (AUTO) 0.79 x10^3/uL (1-3.4); LYMPHOCYTES % (AUTO) 7 % (22-44); MD NO; MEAN CORPUSCULAR HEMOGLOBIN 31.9 pg (27.0-34.8); MEAN CORPUSCULAR HGB CONC 33.4 g/dL (32.4-35.8); MEAN CORPUSCULAR VOLUME 95.6 fL (80-100); MEAN PLATELET VOLUME 9.2 fL (7.4-10.4); MONOCYTES # (AUTO) 1.11 x10^3/uL (0.2-0.8); MONOCYTES % (AUTO) 10 % (2-9); NEUTROPHILS # (AUTO) 8.99 x10^3/uL (1.8-6.8); NEUTROPHILS % (AUTO) 81 % (42-75); PLATELET COUNT 128 x10^3/uL (130-400); RED BLOOD COUNT 4.76 x10^6/uL (3.82-5.3); RED CELL DISTRIBUTION WIDTH 14.1 % (9.6-15.2)
[2017-12-04 09:52] LABS: ALANINE AMINOTRANSFERASE 22 U/L (12-78); ALBUMIN 3.9 g/dL (3.4-5.0); ANION GAP 9 mmol/L (5-15); CALCIUM 9.6 mg/dL (8.5-10.1); CHLORIDE 106 mmol/L (98-107)
[2017-12-04 09:55] LABS: ALKALINE PHOSPHATASE 72 U/L (45-117); BILIRUBIN,TOTAL 1.2 mg/dL (0.2-1.0); CREATININE 0.74 mg/dL (0.55-1.02); TOTAL PROTEIN 7.6 g/dL (6.4-8.2)
[2017-12-04] MEDS ORDERED: OMNIPAQUE 350 MG/ML, 100ML BOTTLE ONE (11:23)
[2017-12-04] MEDS ORDERED: SPIRONOLACTONE (12:26)
[2017-12-04] MEDS ORDERED: WARFARIN (12:26)
[2017-12-04] MEDS ORDERED: KCL (12:26)
[2017-12-04] MEDS ORDERED: SODIUM CHLORIDE FLUSH 10ML SYR IVF PRN (12:30)
[2017-12-04] MEDS ORDERED: ONDANSETRON 2MG/ML, 2ML IVPush PRN (13:00)
[2017-12-04 15:48] VITALS: BP 134/83
[2017-12-04] MEDS: AMIODARONE 200 MG TABLET PO SCH (15:52)
[2017-12-04] MEDS: SPIRONOLACTONE 25 MG TABLET PO SCH (15:52)
[2017-12-04] MEDS: AMLODIPINE 5 MG TABLET PO SCH (15:52)
[2017-12-04] MEDS: SERTRALINE 50MG TABLET PO SCH (15:53)
[2017-12-04] MEDS: ENOXAPARIN 30 MG/0.3 ML SQ SCH (15:53)
[2017-12-04] MEDS: PROPRANOLOL 60 MG CAP.SA.24H PO SCH (15:54)
[2017-12-04] MEDS: D5%-0.45NACL+KCL 20MEQ 1,000 ML IV SCH (17:42)
[2017-12-04 19:35] VITALS: BP 128/66
[2017-12-04] MEDS: LISINOPRIL 20 MG TABLET PO SCH (20:59)
[2017-12-04] MEDS: FAMOTIDINE 20 MG/2 ML IVPush SCH (20:59)
[2017-12-04] MEDS: ATORVASTATIN 40 MG TABLET PO SCH (20:59)
[2017-12-05] MEDS: D5%-0.45NACL+KCL 20MEQ 1,000 ML IV SCH ×3 (01:44→20:15)
[2017-12-05 02:00] VITALS: BP 99/61
[2017-12-05] MEDS: ENOXAPARIN 30 MG/0.3 ML SQ SCH ×2 (05:11→16:55)
[2017-12-05 05:38] LABS: BASOPHILS # (AUTO) 0.01 x10^3/uL (0-0.1); BASOPHILS % (AUTO) 0 % (0-1); EOSINOPHILS # (AUTO) 0.14 x10^3/uL (0-0.4); EOSINOPHILS % (AUTO) 2 % (1-7); LYMPHOCYTES # (AUTO) 0.97 x10^3/uL (1-3.4); LYMPHOCYTES % (AUTO) 13 % (22-44); MD NO; MEAN CORPUSCULAR HEMOGLOBIN 31.8 pg (27.0-34.8); MEAN CORPUSCULAR VOLUME 96.2 fL (80-100); MEAN PLATELET VOLUME 8.9 fL (7.4-10.4); MONOCYTES # (AUTO) 0.98 x10^3/uL (0.2-0.8); MONOCYTES % (AUTO) 13 % (2-9); NEUTROPHILS # (AUTO) 5.31 x10^3/uL (1.8-6.8); NEUTROPHILS % (AUTO) 72 % (42-75); PLATELET COUNT 120 x10^3/uL (130-400); RED BLOOD COUNT 3.96 x10^6/uL (3.82-5.3); RED CELL DISTRIBUTION WIDTH 14.9 % (9.6-15.2)
[2017-12-05 05:40] LABS: ANION GAP 5 mmol/L (5-15); CALCIUM 8.5 mg/dL (8.5-10.1); CHLORIDE 110 mmol/L (98-107)
[2017-12-05 06:57] VITALS: BP 108/66
[2017-12-05] MEDS: AMLODIPINE 5 MG TABLET PO SCH (09:12)
[2017-12-05] MEDS: FAMOTIDINE 20 MG/2 ML IVPush SCH ×2 (09:12→20:15)
[2017-12-05] MEDS: SERTRALINE 50MG TABLET PO SCH (09:12)
[2017-12-05] MEDS: LISINOPRIL 20 MG TABLET PO SCH ×2 (09:13→20:15)
[2017-12-05] MEDS: PROPRANOLOL 60 MG CAP.SA.24H PO SCH (09:13)
[2017-12-05] MEDS: SPIRONOLACTONE 25 MG TABLET PO SCH (09:13)
[2017-12-05] MEDS: AMIODARONE 200 MG TABLET PO SCH (09:13)
[2017-12-05 13:29] VITALS: BP 115/69
[2017-12-05 20:15] VITALS: BP 126/67
[2017-12-05] MEDS: ATORVASTATIN 40 MG TABLET PO SCH (20:15)
[2017-12-06 01:12] VITALS: BP 117/71
[2017-12-06] MEDS: D5%-0.45NACL+KCL 20MEQ 1,000 ML IV SCH ×2 (04:00→21:15)
[2017-12-06] MEDS: ENOXAPARIN 30 MG/0.3 ML SQ SCH ×2 (04:00→16:00)
[2017-12-06 07:15] VITALS: BP 130/75
[2017-12-06] MEDS: FAMOTIDINE 20 MG/2 ML IVPush SCH ×2 (08:48→21:16)
[2017-12-06] MEDS: SPIRONOLACTONE 25 MG TABLET PO SCH (08:48)
[2017-12-06] MEDS: AMIODARONE 200 MG TABLET PO SCH (08:48)
[2017-12-06] MEDS: LISINOPRIL 20 MG TABLET PO SCH ×2 (08:48→21:16)
[2017-12-06] MEDS: AMLODIPINE 5 MG TABLET PO SCH (08:49)
[2017-12-06] MEDS: SERTRALINE 50MG TABLET PO SCH (08:49)
[2017-12-06] MEDS: PROPRANOLOL 60 MG CAP.SA.24H PO SCH (09:00)
[2017-12-06] MEDS ORDERED: FENTANYL PF 250 MCG/5ML ONE (14:51)
[2017-12-06] MEDS ORDERED: CEFOTETAN PMX 2GM/50ML 50 ML IVPB ONE (15:10)
[2017-12-06] MEDS ORDERED: SUCCINYLCHOLINE 20 MG/ML, 10ML ONE (15:10)
[2017-12-06] MEDS ORDERED: SUGAMMADEX 200 MG/2 ML IVPush ONE (15:47)
[2017-12-06] MEDS ORDERED: ROCURONIUM 10MG/ML,5ML ONE (16:16)
[2017-12-06] MEDS ORDERED: DEXAMETHASONE 4 MG/ML, 1ML ONE (16:16)
[2017-12-06] MEDS ORDERED: ONDANSETRON 2MG/ML, 2ML ONE (16:16)
[2017-12-06] MEDS ORDERED: PROPOFOL 10 MG/ML, 20ML ONE ×2 (16:16)
[2017-12-06] MEDS ORDERED: OXYcodone 5 MG/5 ML ORAL.SOL UDC PO PRN (16:30)
[2017-12-06] MEDS ORDERED: MORPHINE SULFATE 4 MG/ML, 1ML IVPush PRN (16:30)
[2017-12-06] MEDS ORDERED: ONDANSETRON ODT 8 MG PO PRN (16:30)
[2017-12-06] MEDS ORDERED: FENTANYL PF 100 MCG/2ML IV PRN (16:30)
[2017-12-06] MEDS ORDERED: PROMETHAZINE 25 MG/ML, 1ML IV PRN (16:30)
[2017-12-06] MEDS ORDERED: EPHEDRINE 50 MG/ML, 1ML IM PRN (16:30)
[2017-12-06] MEDS ORDERED: ACETAMINOPHEN 325 MG TABLET PO PRN (16:30)
[2017-12-06] MEDS ORDERED: MIDAZOLAM 1 MG/ML, 2ML IV PRN (16:30)
[2017-12-06] MEDS ORDERED: PROMETHAZINE 12.5 MG SUPP PR PRN (16:30)
[2017-12-06] MEDS ORDERED: PROMETHAZINE 25 MG SUPP PR PRN (16:30)
[2017-12-06] MEDS ORDERED: EPHEDRINE 50 MG/ML, 1ML IVPush PRN (16:30)
[2017-12-06] MEDS ORDERED: OXYcodone 5 MG/5 ML ORAL.SOL UDC ONE (16:46)
[2017-12-06] MEDS ORDERED: FENTANYL PF 100 MCG/2ML ONE (16:46)
[2017-12-06 20:18] VITALS: BP 135/67
[2017-12-06] MEDS: ATORVASTATIN 40 MG TABLET PO SCH (21:16)
[2017-12-07 00:34] VITALS: BP 166/86
[2017-12-07 04:40] VITALS: BP 120/79
[2017-12-07] MEDS: D5%-0.45NACL+KCL 20MEQ 1,000 ML IV SCH ×3 (05:11→21:04)
[2017-12-07] MEDS: ENOXAPARIN 30 MG/0.3 ML SQ SCH ×2 (08:00→22:26)
[2017-12-07 08:55] VITALS: BP_SYST 165; BP_SYST 177; BP_DIAS 84; BP_DIAS 93
[2017-12-07] MEDS: AMLODIPINE 5 MG TABLET PO SCH (09:00)
[2017-12-07] MEDS: FAMOTIDINE 20 MG/2 ML IVPush SCH ×2 (09:00→22:27)
[2017-12-07] MEDS: PROPRANOLOL 60 MG CAP.SA.24H PO SCH (09:00)
[2017-12-07] MEDS: SERTRALINE 50MG TABLET PO SCH (09:00)
[2017-12-07] MEDS: LISINOPRIL 20 MG TABLET PO SCH ×2 (09:00→22:27)
[2017-12-07] MEDS: SPIRONOLACTONE 25 MG TABLET PO SCH (09:00)
[2017-12-07] MEDS: AMIODARONE 200 MG TABLET PO SCH (09:00)
[2017-12-07] MEDS ORDERED: MORPHINE SULFATE 4 MG/ML, 1ML IVPush PRN (10:30)
[2017-12-07] MEDS ORDERED: OXYcodone/APAP 5/325MG TABLET PO PRN (10:30)
[2017-12-07] MEDS: OXYcodone/APAP 5/325MG TABLET PO PRN ×2 (11:00→23:53)
[2017-12-07 13:55] VITALS: BP 121/78
[2017-12-07 20:04] VITALS: BP 146/85
[2017-12-07] MEDS: ATORVASTATIN 40 MG TABLET PO SCH (22:27)
[2017-12-07] MEDS ORDERED: HALOPERIDOL 5 MG/ML IM PRN (22:30)
[2017-12-08 01:53] VITALS: BP 109/75
[2017-12-08 05:34] LABS: BASOPHILS # (AUTO) 0.04 x10^3/uL (0-0.1); BASOPHILS % (AUTO) 0 % (0-1); EOSINOPHILS % (AUTO) 1 % (1-7); LYMPHOCYTES # (AUTO) 0.94 x10^3/uL (1-3.4); LYMPHOCYTES % (AUTO) 9 % (22-44); MD NO; MEAN CORPUSCULAR HEMOGLOBIN 31.5 pg (27.0-34.8); MEAN CORPUSCULAR VOLUME 95.6 fL (80-100); MEAN PLATELET VOLUME 10.1 fL (7.4-10.4); MONOCYTES # (AUTO) 1.27 x10^3/uL (0.2-0.8); MONOCYTES % (AUTO) 12 % (2-9); NEUTROPHILS # (AUTO) 8.23 x10^3/uL (1.8-6.8); NEUTROPHILS % (AUTO) 78 % (42-75); PLATELET COUNT 136 x10^3/uL (130-400); RED BLOOD COUNT 4.33 x10^6/uL (3.82-5.3); RED CELL DISTRIBUTION WIDTH 14.3 % (9.6-15.2)
[2017-12-08] MEDS: D5%-0.45NACL+KCL 20MEQ 1,000 ML IV SCH ×3 (06:38→19:30)
[2017-12-08 08:34] VITALS: BP 127/88
[2017-12-08] MEDS: FAMOTIDINE 20 MG/2 ML IVPush SCH ×2 (08:36→19:37)
[2017-12-08] MEDS: SPIRONOLACTONE 25 MG TABLET PO SCH (08:36)
[2017-12-08] MEDS: AMIODARONE 200 MG TABLET PO SCH (08:36)
[2017-12-08] MEDS: ENOXAPARIN 30 MG/0.3 ML SQ SCH ×2 (08:36→19:38)
[2017-12-08] MEDS: PROPRANOLOL 60 MG CAP.SA.24H PO SCH (08:36)
[2017-12-08] MEDS: LISINOPRIL 20 MG TABLET PO SCH ×2 (08:37→19:37)
[2017-12-08] MEDS: AMLODIPINE 5 MG TABLET PO SCH (08:37)
[2017-12-08] MEDS: SERTRALINE 50MG TABLET PO SCH (08:37)
[2017-12-08 13:53] VITALS: BP 143/91
[2017-12-08 19:34] VITALS: BP 123/89
[2017-12-08] MEDS: ATORVASTATIN 40 MG TABLET PO SCH (19:38)
[2017-12-09 02:13] VITALS: BP 107/82
[2017-12-09] MEDS: D5%-0.45NACL+KCL 20MEQ 1,000 ML IV SCH (04:19)
[2017-12-09 05:40] LABS: CREATININE 0.85 mg/dL (0.55-1.02)
[2017-12-09 07:05] VITALS: BP 139/87
[2017-12-09] MEDS: ENOXAPARIN 30 MG/0.3 ML SQ SCH ×2 (08:21→19:34)
[2017-12-09] MEDS: AMLODIPINE 5 MG TABLET PO SCH (08:21)
[2017-12-09] MEDS: FAMOTIDINE 20 MG/2 ML IVPush SCH ×2 (08:21→19:34)
[2017-12-09] MEDS: SPIRONOLACTONE 25 MG TABLET PO SCH (08:21)
[2017-12-09] MEDS: AMIODARONE 200 MG TABLET PO SCH (08:21)
[2017-12-09] MEDS: SERTRALINE 50MG TABLET PO SCH (08:22)
[2017-12-09] MEDS: LISINOPRIL 20 MG TABLET PO SCH ×2 (08:22→19:34)
[2017-12-09] MEDS: PROPRANOLOL 60 MG CAP.SA.24H PO SCH (08:22)
[2017-12-09 12:05] VITALS: BP 133/93
[2017-12-09] MEDS: ATORVASTATIN 40 MG TABLET PO SCH (19:34)
[2017-12-09 20:27] VITALS: BP 100/72
[2017-12-10 01:17] VITALS: BP 116/87
[2017-12-10 03:15] LABS: MEAN CORPUSCULAR HGB CONC 33.3 g/dL (32.4-35.8); MEAN CORPUSCULAR VOLUME 96.2 fL (80-100); MEAN PLATELET VOLUME 9.9 fL (7.4-10.4); PLATELET COUNT 147 x10^3/uL (130-400); RED BLOOD COUNT 4.88 x10^6/uL (3.82-5.3); RED CELL DISTRIBUTION WIDTH 14.3 % (9.6-15.2)
[2017-12-10 03:16] LABS: BASOPHILS % (AUTO) 1 % (0-1); EOSINOPHILS # (AUTO) 0.06 x10^3/uL (0-0.4); EOSINOPHILS % (AUTO) 1 % (1-7); LYMPHOCYTES # (AUTO) 1.25 x10^3/uL (1-3.4); LYMPHOCYTES % (AUTO) 11 % (22-44); MD NO; MONOCYTES # (AUTO) 1.58 x10^3/uL (0.2-0.8); MONOCYTES % (AUTO) 14 % (2-9); NEUTROPHILS # (AUTO) 7.98 x10^3/uL (1.8-6.8); NEUTROPHILS % (AUTO) 73 % (42-75)
[2017-12-10 03:22] LABS: ALANINE AMINOTRANSFERASE 15 U/L (12-78); ALBUMIN 3.2 g/dL (3.4-5.0); ANION GAP 6 mmol/L (5-15); CHLORIDE 104 mmol/L (98-107); CREATININE 1.15 mg/dL (0.55-1.02)
[2017-12-10 03:27] LABS: ALKALINE PHOSPHATASE 83 U/L (45-117); BILIRUBIN,TOTAL 0.8 mg/dL (0.2-1.0); TROPONIN I < 0.015 ng/mL (0.000-0.045)
[2017-12-10] MEDS: AMIODARONE 200 MG TABLET PO SCH (09:00)
[2017-12-10 09:02] VITALS: BP 133/81
[2017-12-10 09:48] LABS: TROPONIN I < 0.015 ng/mL (0.000-0.045)
[2017-12-10] MEDS ORDERED: AMIODARONE 150 MG in DEXTROSE 5% 100 ML IV ONE ×2 (10:00→10:30)
[2017-12-10] MEDS: FILTER 0.22 MICRON FOR AMIODARONE IV PRN (10:16)
[2017-12-10] MEDS: AMLODIPINE 5 MG TABLET PO SCH (10:16)
[2017-12-10] MEDS: PROPRANOLOL 60 MG CAP.SA.24H PO SCH (10:16)
[2017-12-10] MEDS: SPIRONOLACTONE 25 MG TABLET PO SCH (10:16)
[2017-12-10] MEDS: LISINOPRIL 20 MG TABLET PO SCH ×2 (10:16→20:07)
[2017-12-10] MEDS: FAMOTIDINE 20 MG/2 ML IVPush SCH ×2 (10:43→20:08)
[2017-12-10] MEDS: SERTRALINE 50MG TABLET PO SCH (10:44)
[2017-12-10] MEDS: AMIODARONE 900 MG in DEXTROSE 5% 482 ML IV PRN (10:45)
[2017-12-10 11:03] VITALS: BP 111/63
[2017-12-10 14:17] VITALS: BP 112/80
[2017-12-10 19:39] VITALS: BP 137/90
[2017-12-10] MEDS: ATORVASTATIN 40 MG TABLET PO SCH (20:07)
[2017-12-10] MEDS: ENOXAPARIN 30 MG/0.3 ML SQ SCH (20:12)
[2017-12-11 02:00] VITALS: BP 100/73
[2017-12-11 02:20] LABS: CULTURE INDICATED? YES; MICROSCOPIC INDICATED
[2017-12-11] MEDS: SULFAMETH./TRIMETHOPRIM DS 800MG/160MG TABLET PO SCH ×3 (03:33→21:33)
[2017-12-11 08:17] VITALS: BP 116/80
[2017-12-11] MEDS: FAMOTIDINE 20 MG/2 ML IVPush SCH ×2 (08:42→21:32)
[2017-12-11] MEDS: SPIRONOLACTONE 25 MG TABLET PO SCH (08:47)
[2017-12-11] MEDS: PROPRANOLOL 60 MG CAP.SA.24H PO SCH (08:47)
[2017-12-11] MEDS: AMLODIPINE 5 MG TABLET PO SCH (08:47)
[2017-12-11] MEDS: SERTRALINE 50MG TABLET PO SCH (08:48)
[2017-12-11] MEDS: LISINOPRIL 20 MG TABLET PO SCH ×2 (08:48→21:33)
[2017-12-11] MEDS: AMIODARONE 200 MG TABLET PO SCH ×3 (08:49→21:35)
[2017-12-11] MEDS: AMIODARONE 900 MG in DEXTROSE 5% 482 ML IV PRN (09:07)
[2017-12-11] MEDS: FILTER 0.22 MICRON FOR AMIODARONE IV PRN (09:10)
[2017-12-11 14:00] VITALS: BP 82/56
[2017-12-11] MEDS ORDERED: SODIUM CHLORIDE 0.9% 1,000ML IVBOLUS ONE (14:30)
[2017-12-11 15:00] VITALS: BP 99/64
[2017-12-11 20:00] VITALS: BP 91/54
[2017-12-11 21:30] VITALS: BP 124/79
[2017-12-11] MEDS: ATORVASTATIN 40 MG TABLET PO SCH (21:32)
[2017-12-11] MEDS: ENOXAPARIN 30 MG/0.3 ML SQ SCH (21:35)
[2017-12-12 00:41] VITALS: BP 114/78
[2017-12-12 06:37] VITALS: BP 123/82
[2017-12-12] MEDS: SULFAMETH./TRIMETHOPRIM DS 800MG/160MG TABLET PO SCH ×2 (10:07→19:53)
[2017-12-12] MEDS: AMLODIPINE 5 MG TABLET PO SCH (10:08)
[2017-12-12] MEDS: LISINOPRIL 20 MG TABLET PO SCH ×2 (10:09→19:53)
[2017-12-12] MEDS: SPIRONOLACTONE 25 MG TABLET PO SCH (10:09)
[2017-12-12] MEDS: PROPRANOLOL 60 MG CAP.SA.24H PO SCH (10:09)
[2017-12-12] MEDS: AMIODARONE 200 MG TABLET PO SCH ×3 (10:09→19:52)
[2017-12-12] MEDS: SERTRALINE 50MG TABLET PO SCH (10:10)
[2017-12-12 14:19] VITALS: BP 114/69
[2017-12-12 19:00] VITALS: BP 120/76
[2017-12-12 19:50] VITALS: BP 110/64
[2017-12-12] MEDS: ATORVASTATIN 40 MG TABLET PO SCH (19:53)
[2017-12-12 19:54] LABS: CLOSTRIDIUM DIFFICILE ANTIGEN NEGATIVE; CLOSTRIDIUM DIFFICILE TOXIN NEGATIVE (Negative)
[2017-12-12] MEDS: ENOXAPARIN 30 MG/0.3 ML SQ SCH (20:01)
[2017-12-13 01:20] VITALS: BP 100/69
[2017-12-13] MEDS: LISINOPRIL 20 MG TABLET PO SCH ×2 (08:47→21:48)
[2017-12-13] MEDS: SERTRALINE 50MG TABLET PO SCH (08:47)
[2017-12-13] MEDS: AMIODARONE 200 MG TABLET PO SCH ×3 (08:48→21:52)
[2017-12-13] MEDS: SPIRONOLACTONE 25 MG TABLET PO SCH (08:48)
[2017-12-13] MEDS: AMLODIPINE 5 MG TABLET PO SCH (08:48)
[2017-12-13] MEDS: DIGOXIN 0.125 MG TABLET PO SCH (08:48)
[2017-12-13] MEDS: SULFAMETH./TRIMETHOPRIM DS 800MG/160MG TABLET PO SCH ×2 (08:48→21:48)
[2017-12-13] MEDS: PROPRANOLOL 60 MG CAP.SA.24H PO SCH (08:49)
[2017-12-13 09:07] VITALS: BP 100/65
[2017-12-13 12:27] VITALS: BP 130/86
[2017-12-13 18:28] VITALS: BP 118/73
[2017-12-13] MEDS: ATORVASTATIN 40 MG TABLET PO SCH (21:48)
[2017-12-13] MEDS: ENOXAPARIN 30 MG/0.3 ML SQ SCH (21:55)
[2017-12-14 00:17] VITALS: BP 148/81
[2017-12-14] MEDS: SPIRONOLACTONE 25 MG TABLET PO SCH (09:00)
[2017-12-14] MEDS: AMLODIPINE 5 MG TABLET PO SCH (09:00)
[2017-12-14] MEDS: PROPRANOLOL 60 MG CAP.SA.24H PO SCH (09:00)
[2017-12-14] MEDS ORDERED: DIGOXIN 0.125 MG TABLET PO SCH (09:00)
[2017-12-14] MEDS: LISINOPRIL 20 MG TABLET PO SCH ×2 (09:00→20:56)
[2017-12-14] MEDS ORDERED: SERTRALINE 100MG TABLET ONE (09:21)
[2017-12-14 10:13] VITALS: BP 95/50
[2017-12-14 10:14] VITALS: BP 98/62
[2017-12-14] MEDS: SERTRALINE 50MG TABLET PO SCH (10:42)
[2017-12-14] MEDS: SULFAMETH./TRIMETHOPRIM DS 800MG/160MG TABLET PO SCH ×2 (10:42→20:56)
[2017-12-14 13:09] VITALS: BP 104/51
[2017-12-14 18:29] VITALS: BP 109/60
[2017-12-14] MEDS: ATORVASTATIN 40 MG TABLET PO SCH (20:56)
[2017-12-14] MEDS: ENOXAPARIN 30 MG/0.3 ML SQ SCH (20:56)
[2017-12-15 00:42] VITALS: BP 125/71
[2017-12-15 06:40] VITALS: BP 141/75
[2017-12-15] MEDS: PROPRANOLOL 60 MG CAP.SA.24H PO SCH (08:16)
[2017-12-15] MEDS: SULFAMETH./TRIMETHOPRIM DS 800MG/160MG TABLET PO SCH (08:16)
[2017-12-15] MEDS: DIGOXIN 0.125 MG TABLET PO SCH (08:16)
[2017-12-15] MEDS: SPIRONOLACTONE 25 MG TABLET PO SCH (08:16)
[2017-12-15] MEDS: SERTRALINE 50MG TABLET PO SCH (08:16)
[2017-12-15] MEDS: LISINOPRIL 20 MG TABLET PO SCH (08:16)
[2017-12-15] MEDS: AMLODIPINE 5 MG TABLET PO SCH (08:17)
[2017-12-15] MEDS ORDERED: AMIODARONE 200 MG TABLET PO SCH (09:00)
[2017-12-15] MEDS ORDERED: SULF-169 PO (11:53)
[2017-12-15] MEDS ORDERED: DIGO125T PO (11:53)
[2017-12-15 12:38] VITALS: BP 132/73
== END 2017-12-15 13:30 | DRG 342 ==
LOC: ED 11:04 → EDIP 12:25 → 4WST 14:03 → 4NOR 12-06 17:43 → 5SO 12-10 08:54
PROVIDERS: ADMIT Surgery; ATTEND Surgery
PROC: 0DTJ0ZZ Resection of Appendix, Open Approach (ICD-10-PCS; 2017-12-06)
PROC: 0DQV0ZZ Repair Mesentery, Open Approach (ICD-10-PCS; principal; 2017-12-11)
PROC: 0T9B70Z Drainage of Bladder with Drainage Device, Via Natural or Artificial Opening (ICD-10-PCS; 2017-12-11)
DX: K45.0 Other specified abdominal hernia with obstruction, without gangrene (principal); N39.0 Urinary tract infection, site not specified; D18.00 Hemangioma unspecified site; H35.30 Unspecified macular degeneration; I48.0 Paroxysmal atrial fibrillation; B95.7 Other staphylococcus as the cause of diseases classified elsewhere; I25.10 Atherosclerotic heart disease of native coronary artery without angina pectoris; B96.89 Other specified bacterial agents as the cause of diseases classified elsewhere; I08.3 Combined rheumatic disorders of mitral, aortic and tricuspid valves; K76.89 Other specified diseases of liver; I10 Essential (primary) hypertension; Z95.0 Presence of cardiac pacemaker; Z90.710 Acquired absence of both cervix and uterus; Z98.1 Arthrodesis status; Z86.73 Personal history of transient ischemic attack (TIA), and cerebral infarction without residual deficits; Z79.01 Long term (current) use of anticoagulants; Z79.899 Other long term (current) drug therapy; Z88.6 Allergy status to analgesic agent; Z72.89 Other problems related to lifestyle; Z95.5 Presence of coronary angioplasty implant and graft; Z91.013 Allergy to seafood; Z87.891 Personal history of nicotine dependence; Z85.42 Personal history of malignant neoplasm of other parts of uterus
CPT/HCPCS: 36415; 74021; 74022; 74177; 80048; 80053; 81001; 82565; 83735; 84100; 84484; 85025; 87077; 87086; 87186; 87324; 88304; 93005; 93306; 96374; 99285; G0378; J1100; J1650; J2270; J2405; J2704; J3010; Q9967; J0282; J0330; J3480; J7030; J7060; S0028; S0074